=== PATIENT | female | born 1995 | race Caucasian/White ===

== ENCOUNTER 2018-12-21 10:18 | Outpatient (CLI) | payer OTHER ==
[2018-12-21 11:19] LABS: ADD UMIC NO; UR ASCORBIC ACID NEGATIVE (NEGATIVE); UR BILIRUBIN (Dip) NEGATIVE (NEGATIVE); UR BLOOD (Dip) NEGATIVE (NEGATIVE); UR CLARITY CLEAR (CLEAR); UR COLOR YELLOW (YELLOW); UR GLUCOSE (Dip) 1+ mg/dL (NEGATIVE); UR KETONES (Dip) NEGATIVE (NEGATIVE); UR LEUKOCYTE ESTERASE (Dip) NEGATIVE Leu/ul (NEGATIVE); UR NITRITE (Dip) NEGATIVE (NEGATIVE); UR SPECIFIC GRAVITY (Dip) 1.011 (1.003-1.030); UR TOTAL PROTEIN (Dip) NEGATIVE (NEGATIVE); UR UROBILINOGEN (Dip) NEGATIVE (NEGATIVE)
[2018-12-21] MEDS: LACTATED RINGER'S 1,000 ML IV (11:53)
[2018-12-21] MEDS: TERBUTALINE 1 MG/ML INJ SC ×2 (11:53→13:59)
[2018-12-21 12:04] LABS: ADD MAN DIFF? NO
[2018-12-21 12:06] LABS: WHITE BLOOD COUNT 13.9 10^3/ul (4.8-10.8)
[2018-12-21 12:06] LABS: BASOPHILS % 0.2 % (0.0-2.0); EOSINOPHILS # 0.1 10^3/ul (0.0-0.5); EOSINOPHILS % 0.8 % (0.0-7.0); HEMATOCRIT 32.3 % (37.0-47.0); HEMOGLOBIN 10.4 g/dl (12.0-16.0); LYMPHOCYTES # 1.5 10^3/ul (0.8-2.9); LYMPHOCYTES % 11.1 % (15.0-51.0); MEAN CORPUSCULAR HEMOGLOBIN 27.6 pg (29.0-33.0); MEAN CORPUSCULAR HGB CONC 32.2 g/dl (32.0-37.0); MEAN CORPUSCULAR VOLUME 85.7 fl (82.0-101.0); MEAN PLATELET VOLUME 12.7 fl (7.4-10.4); MONOCYTE # 1.2 10^3/ul (0.3-0.9); MONOCYTES % 8.7 % (0.0-11.0); NEUTROPHIL # 10.9 10^3/ul (1.6-7.5); NEUTROPHILS % 78.2 % (39.0-77.0); PLATELET COUNT 166 10^3/UL (140-415); RED BLOOD COUNT 3.77 10^6/ul (4.20-5.40); RED CELL DISTRIBUTION WIDTH 12.7 % (11.5-14.5)
== END 2018-12-21 18:00 | disposition home or self-care (01) ==
LOC: OBT 10:18 → L-D 10:20 → OBT 18:00
DX: O99.513 Diseases of the respiratory system complicating pregnancy, third trimester (principal); R05 Cough; Z3A.30 30 weeks gestation of pregnancy
CPT/HCPCS: 36415; 76817; 76818; 81003; 85025; 87086; 96360; 96361; 96372

== ENCOUNTER 2018-12-23 09:31 | Inpatient (IN) | payer OTHER ==
[2018-12-23 11:10] LABS: ADD UMIC YES; UR ASCORBIC ACID NEGATIVE (NEGATIVE); UR BACTERIA FEW /HPF (NONE SEEN); UR BILIRUBIN (Dip) NEGATIVE (NEGATIVE); UR BLOOD (Dip) NEGATIVE (NEGATIVE); UR CLARITY SLIGHTLY CLOUDY (CLEAR); UR COLOR YELLOW (YELLOW); UR GLUCOSE (Dip) 2+ mg/dL (NEGATIVE); UR KETONES (Dip) NEGATIVE (NEGATIVE); UR LEUKOCYTE ESTERASE (Dip) 1+ Leu/ul (NEGATIVE); UR NITRITE (Dip) NEGATIVE (NEGATIVE); UR RBC 1 /HPF (0-5); UR SPECIFIC GRAVITY (Dip) 1.011 (1.003-1.030); UR SQUAMOUS EPITHELIAL CELL MODERATE /HPF (FEW); UR TOTAL PROTEIN (Dip) NEGATIVE (NEGATIVE); UR UROBILINOGEN (Dip) NEGATIVE (NEGATIVE); UR WBC 3 /HPF (0-5)
[2018-12-23] MEDS: TERBUTALINE 1 MG/ML INJ SC ×2 (14:08→17:19)
[2018-12-23] MEDS: LACTATED RINGER'S 1,000 ML IV ×3 (14:08→18:55)
[2018-12-23] MEDS: BETAMET NA PHOS/AC(6 MG/ML) 2 ML INJ SYG IM (18:54)
[2018-12-23] MEDS: MAGNESIUM SULFATE 4 GM/100 ML 100 ML IV (19:08)
[2018-12-23] MEDS: MAGNESIUM SULFATE 20 GM/500 ML 500 ML IV (19:55)
[2018-12-24] MEDS: LACTATED RINGER'S 1,000 ML IV ×2 (02:17→15:01)
[2018-12-24] MEDS: MAGNESIUM SULFATE 20 GM/500 ML 500 ML IV ×2 (05:39→15:04)
[2018-12-24 07:00] LABS: MAGNESIUM 5.3 mg/dl (1.7-2.5)
[2018-12-24 12:50] LABS: MAGNESIUM 5.2 mg/dl (1.7-2.5)
[2018-12-24] MEDS ORDERED: AL HYDROX/MG HYDROX/SIMETH 30 ML CUP PO (13:30)
[2018-12-24] MEDS ORDERED: ACETAMINOPHEN 325 MG TAB PO (13:30)
[2018-12-24] MEDS: GUAIFENESIN/DM 5ML CUP PO (14:05)
[2018-12-24] MEDS: SALINE 0.65% 45 ML NAS SPRAY NASAL (18:08)
[2018-12-24] MEDS: BETAMET NA PHOS/AC(6 MG/ML) 2 ML INJ SYG IM (18:08)
[2018-12-24 19:10] LABS: MAGNESIUM 4.9 mg/dl (1.7-2.5)
[2018-12-24] MEDS: NIFEdipine 10 MG CAP PO (23:56)
[2018-12-25] MEDS: NIFEdipine 10 MG CAP PO (05:56)
[2018-12-25] MEDS ORDERED: NIFEdipine 10 MG CAP PO (19:00)
== END 2018-12-25 09:00 | disposition home or self-care (01) | DRG 833 ==
LOC: OBT 09:31 → L-D 09:32 → OBT 17:30 → L-D 17:30 → PP1 22:35
DX: O47.03 False labor before 37 completed weeks of gestation, third trimester (principal); Z3A.30 30 weeks gestation of pregnancy
CPT/HCPCS: 76818; 81001; 83735; 87086; 96360; 96361; 96372

== ENCOUNTER 2019-01-18 12:30 | Outpatient (CLI) | payer OTHER ==
[2019-01-18] MEDS: LACTATED RINGER'S 1,000 ML IV (16:03)
[2019-01-18] MEDS: TERBUTALINE 1 MG/ML INJ SC ×2 (16:12→17:40)
[2019-01-18 16:37] LABS: ADD MAN DIFF? NO
[2019-01-18 16:42] LABS: WHITE BLOOD COUNT 9.7 10^3/ul (4.8-10.8)
[2019-01-18 16:42] LABS: ABNORMAL IP MESSAGE 1; BASOPHILS % 0.2 % (0.0-2.0); EOSINOPHILS # 0.1 10^3/ul (0.0-0.5); EOSINOPHILS % 0.8 % (0.0-7.0); HEMATOCRIT 33.3 % (37.0-47.0); HEMOGLOBIN 10.3 g/dl (12.0-16.0); LYMPHOCYTES # 1.9 10^3/ul (0.8-2.9); LYMPHOCYTES % 19.3 % (15.0-51.0); MEAN CORPUSCULAR HEMOGLOBIN 25.5 pg (29.0-33.0); MEAN CORPUSCULAR HGB CONC 30.9 g/dl (32.0-37.0); MEAN CORPUSCULAR VOLUME 82.4 fl (82.0-101.0); MEAN PLATELET VOLUME 13.1 fl (7.4-10.4); MONOCYTES % 10.3 % (0.0-11.0); NEUTROPHIL # 6.6 10^3/ul (1.6-7.5); NEUTROPHILS % 68.5 % (39.0-77.0); NUCLEATED RED BLOOD CELLS% 0.2 /100WBC (0.0-0.0); PLATELET COUNT 147 10^3/UL (140-415); RED BLOOD COUNT 4.04 10^6/ul (4.20-5.40)
[2019-01-18 16:51] LABS: POSITIVE DIFF @See below
[2019-01-18 16:57] LABS: ADD UMIC NO; UR ASCORBIC ACID NEGATIVE (NEGATIVE); UR BILIRUBIN (Dip) NEGATIVE (NEGATIVE); UR BLOOD (Dip) NEGATIVE (NEGATIVE); UR CLARITY CLEAR (CLEAR); UR COLOR STRAW (YELLOW); UR GLUCOSE (Dip) 3+ mg/dL (NEGATIVE); UR KETONES (Dip) NEGATIVE (NEGATIVE); UR LEUKOCYTE ESTERASE (Dip) NEGATIVE Leu/ul (NEGATIVE); UR NITRITE (Dip) NEGATIVE (NEGATIVE); UR SPECIFIC GRAVITY (Dip) 1.005 (1.003-1.030); UR TOTAL PROTEIN (Dip) NEGATIVE (NEGATIVE); UR UROBILINOGEN (Dip) NEGATIVE (NEGATIVE)
[2019-01-18] MEDS: BETAMET NA PHOS/AC(6 MG/ML) 2 ML INJ SYG IM (18:04)
== END 2019-01-18 18:16 | disposition home or self-care (01) ==
LOC: OBT 12:30 → L-D 12:31 → OBT 18:16
DX: O62.9 Abnormality of forces of labor, unspecified (principal); Z3A.30 30 weeks gestation of pregnancy
CPT/HCPCS: 36415; 76818; 81003; 85025; 96360; 96361; 96372

== ENCOUNTER 2019-01-19 17:38 | Outpatient (CLI) | payer OTHER ==
[2019-01-19] MEDS: BETAMET NA PHOS/AC(6 MG/ML) 2 ML INJ SYG IM (20:50)
== END 2019-01-19 21:05 | disposition home or self-care (01) ==
LOC: OBT 17:38 → L-D 17:39 → OBT 21:05
DX: O62.9 Abnormality of forces of labor, unspecified (principal); Z3A.34 34 weeks gestation of pregnancy
CPT/HCPCS: J0702

== ENCOUNTER 2019-01-23 04:45 | Inpatient (IN) | payer OTHER ==
[2019-01-23 06:23] LABS: ADD UMIC NO; UR ASCORBIC ACID NEGATIVE (NEGATIVE); UR BILIRUBIN (Dip) NEGATIVE (NEGATIVE); UR BLOOD (Dip) NEGATIVE (NEGATIVE); UR CALCIUM OXALATE CRYSTAL FEW /HPF (NONE SEEN); UR CLARITY SLIGHTLY CLOUDY (CLEAR); UR COLOR YELLOW (YELLOW); UR GLUCOSE (Dip) 3+ mg/dL (NEGATIVE); UR KETONES (Dip) NEGATIVE (NEGATIVE); UR LEUKOCYTE ESTERASE (Dip) NEGATIVE Leu/ul (NEGATIVE); UR NITRITE (Dip) NEGATIVE (NEGATIVE); UR RBC 1 /HPF (0-5); UR SPECIFIC GRAVITY (Dip) 1.021 (1.003-1.030); UR SQUAMOUS EPITHELIAL CELL MODERATE /HPF (FEW); UR TOTAL PROTEIN (Dip) NEGATIVE (NEGATIVE); UR UROBILINOGEN (Dip) NEGATIVE (NEGATIVE); UR WBC 2 /HPF (0-5)
[2019-01-23 06:31] LABS: RUPTURE FETAL MEMBRANES POSITIVE (NEGATIVE)
[2019-01-23] MEDS ORDERED: LACTATED RINGER'S 1,000 ML IV (06:59)
[2019-01-23] MEDS ORDERED: MISOPROSTOL 200 MCG TAB PR (07:00)
[2019-01-23] MEDS ORDERED: CARBOPROST 250 MCG INJ IM (07:00)
[2019-01-23] MEDS ORDERED: METHYLERGONOVINE 0.2 MG INJ IM (07:00)
[2019-01-23] MEDS ORDERED: OXYTOCIN 30 UNITS/LR 500 ML IV ×2 (07:00)
[2019-01-23] MEDS ORDERED: IBUPROFEN 600 MG TAB PO (07:00)
[2019-01-23] MEDS ORDERED: LIDOCAINE 1% (MPF) 30 ML INJ INJ (07:00)
[2019-01-23] MEDS ORDERED: BUTORPHANOL 2 MG INJ IV ×2 (07:00)
[2019-01-23 08:04] LABS: ADD MAN DIFF? NO
[2019-01-23 08:07] LABS: ABNORMAL IP MESSAGE 1; BASOPHILS % 0.4 % (0.0-2.0); EOSINOPHILS # 0.1 10^3/ul (0.0-0.5); EOSINOPHILS % 0.7 % (0.0-7.0); HEMATOCRIT 30.5 % (37.0-47.0); HEMOGLOBIN 9.7 g/dl (12.0-16.0); LYMPHOCYTES # 2.9 10^3/ul (0.8-2.9); LYMPHOCYTES % 26.7 % (15.0-51.0); MEAN CORPUSCULAR HEMOGLOBIN 25.8 pg (29.0-33.0); MEAN CORPUSCULAR HGB CONC 31.8 g/dl (32.0-37.0); MEAN CORPUSCULAR VOLUME 81.1 fl (82.0-101.0); MEAN PLATELET VOLUME 13.4 fl (7.4-10.4); MONOCYTE # 1.1 10^3/ul (0.3-0.9); MONOCYTES % 10.2 % (0.0-11.0); NEUTROPHIL # 6.5 10^3/ul (1.6-7.5); NEUTROPHILS % 60.4 % (39.0-77.0); NUCLEATED RED BLOOD CELLS # 0.1 10^3/ul (0.0-0.0); NUCLEATED RED BLOOD CELLS% 0.6 /100WBC (0.0-0.0); PLATELET COUNT 172 10^3/UL (140-415); RED BLOOD COUNT 3.76 10^6/ul (4.20-5.40)
[2019-01-23 08:07] LABS: WHITE BLOOD COUNT 10.8 10^3/ul (4.8-10.8)
[2019-01-23] MEDS: LACTATED RINGER'S 1,000 ML IV ×2 (08:13→20:51)
[2019-01-23 08:15] LABS: POSITIVE DIFF @See below
[2019-01-23 08:26] LABS: INR 1.06; PROTIME 13.9 Sec (11.9-14.9); PT RATIO 1.1
[2019-01-23 08:27] LABS: PARTIAL THROMBOPLASTIN TIME 27.6 Sec (23.0-35.0)
[2019-01-23] MEDS: OXYTOCIN 30 UNITS/LR 500 ML IV (08:56)
[2019-01-23 08:59] LABS: HEPATITIS B SURFACE ANTIGEN NEGATIVE (NEGATIVE)
[2019-01-23] MEDS: AMPICILLIN 2 GM/NS (PMX) 100 ML IV (08:59)
[2019-01-23] MEDS: AMPICILLIN 1 GM/NS (PMX) 50 ML IV ×3 (13:10→21:00)
[2019-01-23 16:58] LABS: RAPID PLASMA REAGIN NONREACTIVE (NR)
[2019-01-23] MEDS ORDERED: FENTAnyl 2MCG/ML-ROPIV 0.2% 100 ML (18:17)
[2019-01-23] MEDS ORDERED: NALOXONE (0.4 MG/ML) INJ IV (18:30)
[2019-01-23] MEDS ORDERED: DIPHENHYDRAMINE 50 MG INJ IV (18:30)
[2019-01-23] MEDS ORDERED: ONDANSETRON 4 MG INJ IV (18:30)
[2019-01-23] MEDS: FENTAnyl 2MCG/ML-ROPIV 0.2% 100 ML BAG EPI (23:46)
[2019-01-24] MEDS: AMPICILLIN 1 GM/NS (PMX) 50 ML IV ×5 (01:28→18:22)
[2019-01-24] MEDS: LACTATED RINGER'S 1,000 ML IV ×3 (02:16→19:56)
[2019-01-24] MEDS: SOD CHLORIDE 0.9% 500 ML IV (02:30)
[2019-01-24] MEDS: FENTAnyl 2MCG/ML-ROPIV 0.2% 100 ML BAG EPI ×4 (04:22→18:22)
[2019-01-24] MEDS: OXYTOCIN 30 UNITS/LR 500 ML IV (21:28)
[2019-01-24] MEDS: ACETAMINOPHEN 500 MG TAB PO (21:33)
[2019-01-24] MEDS: KETOROLAC 30 MG INJ IV (21:34)
[2019-01-24] MEDS: MINERAL OIL LIGHT 10 ML VIAL TOP (21:50)
[2019-01-25] MEDS: LACTATED RINGER'S 1,000 ML IV* (00:02)
[2019-01-25] MEDS: OXYTOCIN 30 UNITS/LR 500 ML IV (00:18)
[2019-01-25] MEDS: IBUPROFEN 600 MG TAB PO ×5 (00:24→23:29)
[2019-01-25] MEDS: BENZOCAINE 20% 56 ML SPRAY TOP (00:24)
[2019-01-25] MEDS: WITCH HAZEL/GLYCERIN PAD PR (00:24)
[2019-01-25] MEDS: LANOLIN HPA 1 PKT TOP (00:24)
[2019-01-25] MEDS ORDERED: HYDROCODONE/APAP (5/325) TAB PO ×2 (00:30)
[2019-01-25] MEDS ORDERED: MISOPROSTOL 200 MCG TAB PR (00:30)
[2019-01-25] MEDS ORDERED: ZOLPIDEM 5 MG TAB PO (00:30)
[2019-01-25] MEDS ORDERED: CARBOPROST 250 MCG INJ IM (00:30)
[2019-01-25] MEDS ORDERED: METHYLERGONOVINE 0.2 MG INJ IM (00:30)
[2019-01-25] MEDS ORDERED: DIBUCAINE 1% 30 GM OINT TOP (00:30)
[2019-01-25] MEDS: CEPHALEXIN 500 MG CAP PO ×4 (05:25→23:29)
[2019-01-25 07:03] LABS: ADD MAN DIFF? NO
[2019-01-25 07:07] LABS: ABNORMAL IP MESSAGE 1; BASOPHIL # 0.1 10^3/ul (0.0-0.1); BASOPHILS % 0.3 % (0.0-2.0); EOSINOPHILS # 0.2 10^3/ul (0.0-0.5); EOSINOPHILS % 0.8 % (0.0-7.0); HEMATOCRIT 31.1 % (37.0-47.0); HEMOGLOBIN 9.6 g/dl (12.0-16.0); LYMPHOCYTES # 2.6 10^3/ul (0.8-2.9); LYMPHOCYTES % 14.3 % (15.0-51.0); MEAN CORPUSCULAR HEMOGLOBIN 25.1 pg (29.0-33.0); MEAN CORPUSCULAR HGB CONC 30.9 g/dl (32.0-37.0); MEAN CORPUSCULAR VOLUME 81.2 fl (82.0-101.0); MEAN PLATELET VOLUME 13.2 fl (7.4-10.4); MONOCYTE # 1.6 10^3/ul (0.3-0.9); MONOCYTES % 8.7 % (0.0-11.0); NEUTROPHIL # 13.5 10^3/ul (1.6-7.5); NEUTROPHILS % 75.1 % (39.0-77.0); NUCLEATED RED BLOOD CELLS% 0.1 /100WBC (0.0-0.0); PLATELET COUNT 165 10^3/UL (140-415); RED BLOOD COUNT 3.83 10^6/ul (4.20-5.40); RED CELL DISTRIBUTION WIDTH 14.5 % (11.5-14.5)
[2019-01-25 07:20] LABS: POSITIVE DIFF @See below
[2019-01-25] MEDS: MAGNESIUM HYDROXIDE 30ML CUP PO ×2 (10:52→21:20)
[2019-01-25] MEDS: SENNA/DOCUSATE NA (8.6MG/50MG) TAB PO ×2 (10:52→21:20)
[2019-01-26] MEDS: IBUPROFEN 600 MG TAB PO ×3 (05:18→17:36)
[2019-01-26] MEDS: CEPHALEXIN 500 MG CAP PO ×3 (05:18→17:35)
[2019-01-26 07:22] LABS: ADD MAN DIFF? NO
[2019-01-26 07:29] LABS: BASOPHILS % 0.2 % (0.0-2.0); EOSINOPHILS # 0.2 10^3/ul (0.0-0.5); EOSINOPHILS % 1.1 % (0.0-7.0); HEMATOCRIT 34.3 % (37.0-47.0); HEMOGLOBIN 10.3 g/dl (12.0-16.0); LYMPHOCYTES # 4.1 10^3/ul (0.8-2.9); LYMPHOCYTES % 22.4 % (15.0-51.0); MEAN CORPUSCULAR HEMOGLOBIN 24.6 pg (29.0-33.0); MEAN CORPUSCULAR VOLUME 81.9 fl (82.0-101.0); MEAN PLATELET VOLUME 12.9 fl (7.4-10.4); MONOCYTE # 1.2 10^3/ul (0.3-0.9); MONOCYTES % 6.5 % (0.0-11.0); NEUTROPHIL # 12.4 10^3/ul (1.6-7.5); NEUTROPHILS % 68.7 % (39.0-77.0); PLATELET COUNT 189 10^3/UL (140-415); RED BLOOD COUNT 4.19 10^6/ul (4.20-5.40); RED CELL DISTRIBUTION WIDTH 14.6 % (11.5-14.5)
[2019-01-26 07:29] LABS: WHITE BLOOD COUNT 18.1 10^3/ul (4.8-10.8)
[2019-01-26] MEDS: MAGNESIUM HYDROXIDE 30ML CUP PO (08:47)
[2019-01-26] MEDS: SENNA/DOCUSATE NA (8.6MG/50MG) TAB PO (08:47)
[2019-01-26] MEDS: VARICELLA VACCINE LIVE/PF 1,350 UNIT/0.5 ML ML SC* (09:58)
[2019-01-26] MEDS: DIPHTH/TET/ACEL PERTUSS (ADULT) 0.5 ML VIAL IM* (09:58)
[2019-01-26] MEDS: MEASLES,MUMPS,RUBELLA VACCINE INJ SC* (09:58)
== END 2019-01-26 20:00 | disposition home or self-care (01) | DRG 807 ==
LOC: OBT 04:45 → L-D 04:45 → PP1 01-24 23:05 → OBT 06:49 → L-D 06:49
PROC: 10E0XZZ Delivery of Products of Conception, External Approach (ICD-10-PCS; principal; 2019-01-24)
PROC: 3E033VJ Introduction of Other Hormone into Peripheral Vein, Percutaneous Approach (ICD-10-PCS; 2019-01-24)
DX: O60.13X0 Preterm labor second trimester with preterm delivery third trimester, not applicable or unspecified (principal); Z37.0 Single live birth; O69.81X0 Labor and delivery complicated by cord around neck, without compression, not applicable or unspecified; Z3A.35 35 weeks gestation of pregnancy
CPT/HCPCS: 62322; 76815; 76818; 81001; 81003; 84112; 85025; 85610; 85730; 86592; 86850; 86900; 86901; 87086; 87340; 90716; 99464